=== PATIENT | male | born 1995 | race Caucasian/White ===

== ENCOUNTER 2022-06-21 19:03 | Emergency (ER) | payer OTHER, SELFPAY ==
[2022-06-21 19:05] VITALS: BP 132/84; PULSE 99; RESP 16; TEMP 36.9; O2SAT 100; BMI 30.7
--- NOTE | 2022-06-21 19:43 | RAD_ITS ---
INDICATION: Trauma EXAMINATION/TECHNIQUE: X-RAY - RIGHT XR Forearm 2 Views 3 VIEWS COMPARISON: None. FINDINGS: SOFT TISSUES: No soft tissue swelling or gas. No radiopaque foreign body. BONES/JOINTS: There is an acute obliquely oriented fracture through the proximal to mid shaft of the ulna with minimal separation of fracture fragments.. Normal alignment. Preservation of the joint space.. No sclerotic or destructive changes observed. RAD/Forearm 2 Views IMPRESSION: Acute minimally displaced fracture of the proximal mid ulnar shaft Electronically Signed: Delvis Desai MD at 19:59 EST ,
--- NOTE | 2022-06-21 20:26 | EX.ED.UPPERE ---
HPI History of Present Illness Chief Complaint: Upper Extremity Injury Informant: patient Narrative Narrative: Patient hurt his right forearm. He is right arm dominant. He was leading a horse with his right arm when another horse got between them and his arm was pinched between the 2 horses. No numbness tingling weakness. No other injury than pain in the forearm. Is he is not on any blood thinners or any other medicines. 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 Home Medications hydrocodone-acetaminophen 5-325mg 5mg-325mg 1 tab PO Q6H PRN pain 3 days #12 tabs 06/21/22 [Rx Last Taken Unknown] Allergy/AdvReac Type Severity Reaction Status Date / Time aspirin AdvReac Other Verified 06/21/22 19:05 Family History Brother Hemophilia Surgical History no surgical history Social History Smoking Status: Current some day smoker tobacco type: cigars ROS ROS ED Constitutional Constitutional ED: Denies chills or fever(s) ENT ENT ED: Denies sore throat Cardiovascular Cardiovascular: Denies racing heartbeat Respiratory/Chest Respiratory/Chest: Denies cough Gastrointestinal Gastrointestinal: Denies abdominal pain, nausea or vomiting Genitourinary Genitourinary ED: Denies hematuria Musculoskeletal Musculoskeletal: Reports other Details: See history of present illness ; Denies neck pain Integumentary Denies rash Neurologic Neurologic: Denies paresthesias or weakness Endocrine Endocrinology: Denies polydipsia or polyuria Allergic/Immunologic Allergic/Immunologic ED: Denies urticaria EXAM Physical Exam Const Vital Signs: 06/21/22 19:05 Temperature 98.4 F Temperature Source Temporal Pulse Rate 99 Respiratory Rate 16 Blood Pressure 132/84 H Blood Pressure Mean 100 Pulse Ox 100 Oxygen Delivery Method Room Air Positive well nourished General Appearance ED: NAD HEENT Reports moist mucous membranes normocephalic and atraumatic Eyes EOMs intact bilaterally Neck supple General: Negative for tenderness Resp normal respiratory effort and clear to auscultation bilaterally Cardio regular rate and regular rhythm GI non-tender and non-distended Back/Spine no CVA tenderness Extremity Extremity Narrative: No deformities seen. He does have some tenderness to the right forearm mostly over the ulna. There is some mild swelling. But compartments are still soft. Normal capillary refill pulses and sensation and range of motion of the fingers. Moving the fingers does not hurt the forearm. Neuro oriented x3 Psych mental status grossly normal Skin General Skin Exam: Negative for petechiae MDM MDM MDM Narrative Medical decision making narrative: X-ray shows mid ulnar shaft fracture. There is overall good alignment. On review of the patient's chart, I find out he has hemophilia B listed. When I had spoke with him about medical illness he denied meds or illness. He stated he had told the nurse this so he did not tell me. He has never had surgery. He does have factor IX and he wants to infuse it at home. The only reason he did not is he did not have an IV. Therefore we will place an IV here. He would like to use his own meds that he has for him to take. I think this is a reasonable option. Despite his history of hemophilia B, he has some local swelling but no diffuse swelling and his compartments are still soft. Pulses capillary refill sensation are good. He can move his fingers without pain. I did discuss the case with orthopedics, Dr. Varner to notify him of the unique features of this patient. I spoke with the patient about signs of compartment syndrome, what to look for and to have very low threshold to return. He states he is not really having much pain now. Procedure: Long-arm splint: I did place the patient in a long-arm ulnar gutter splint including portion of the humerus and the hand to decrease rotation and motion. He will be given a sling. I will write for pain meds. Again we discussed reasons to return and I did follow-up. Radiography Diagnostic Testing: Clinical Impression(s) from Imaging Studies Forearm X-Ray 06/21/22 19:43 IMPRESSION: Acute minimally displaced fracture of the proximal mid ulnar shaft Electronically Signed: Delvis Desai MD at 19:59 EST Reading Location ID and State: [facility] / [place] , Service support , X-ray does show a minimally displaced fracture of the mid ulnar shaft. 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
== END 2022-06-21 23:09 | disposition home or self-care (01) ==
PROVIDERS: Emergency Provider Emergency Medicine; PCP Family Medicine; Visit Provider Emergency Medicine
DX: S52.201A Unspecified fracture of shaft of right ulna, initial encounter for closed fracture (principal); W23.0XXA Caught, crushed, jammed, or pinched between moving objects, initial encounter; Y93.89 Activity, other specified; D67 Hereditary factor IX deficiency; F17.290 Nicotine dependence, other tobacco product, uncomplicated
CPT/HCPCS: 29105; 73090; 99284; A4216